=== PATIENT | female | born 1990 | race Caucasian/White ===

== ENCOUNTER 2016-11-06 20:38 | Emergency (ER) | payer OTHER, BC ==
[~2016-11-06] VITALS: Ht 180.3 cm; Wt 106.0 kg
[2016-11-06] MEDS ORDERED: ONDANSETRON 2 MG/ML (Z0FRAN) 2 ML VIAL IV ONE (21:40)
[2016-11-06] MEDS ORDERED: HYDROmorphone 1 MG/ML (DILAUDID) SYRINGE IV ONE ×2 (21:40→23:20)
[2016-11-06] MEDS ORDERED: SODIUM CHLORIDE FLUSH 3 ML SYR IV PRN (21:40)
[2016-11-06] MEDS: SODIUM CHLORIDE FLUSH 10 ML SYR IV PRN ×2 (21:54→23:38)
[2016-11-06 22:05] LABS: BASOPHILS % (AUTO) 0 % (0-2); EOSINOPHILS # (AUTO) 0.2 10^3uL; EOSINOPHILS % (AUTO) 2 % (0-4); LYMPHOCYTES # (AUTO) 2.3 X10^3; MEAN CORPUSCULAR HGB CONC 32.8 g/dL (31.0-37.0); MEAN CORPUSCULAR VOLUME 81 FL (80-100); MONOCYTES # (AUTO) 0.9 X10^3; MONOCYTES % (AUTO) 7 % (3-11); NEUTROPHILS # (AUTO) 8.7 X10^3; NEUTROPHILS % (AUTO) 72 % (51-67); PLATELET COUNT 410 10^3uL (150-450); WHITE BLOOD COUNT 12.11 10^3uL (4.0-11.0)
[2016-11-06 22:06] LABS: BILIRUBIN,URINE Negative (Negative); CLARITY,URINE Clear; COLOR,URINE Yellow; GLUCOSE, URINE (UA) Negative (Negative); LEUKOCYTE ESTERASE ,URINE Negative (Negative); PH,URINE 6.5 (5.0 - 8.0); UROBILINOGEN,URINE 0.2 mg/dL (0.2-1.0)
[2016-11-06 22:13] LABS: MEAN CORPUSCULAR HEMOGLOBIN 26.6 PG (26.0-34.0)
[2016-11-06 22:13] LABS: HCG,QUALITATIVE URINE Negative (Negative); URINE CENTRIFUGED VOLUME 11 mL
[2016-11-06 22:14] LABS: ALBUMIN 4.1 g/dL (3.4-5.0); ANION GAP 13.4 MEQ/L (3-15); CALCULATED IONIZED CALCIUM 4.1 mg/dL (3.8-4.6); TOTAL PROTEIN 7.2 g/dL (6.4-8.5)
[2016-11-06 22:16] LABS: RBC,URINE 0-2 /HPF
[2016-11-07] MEDS ORDERED: ED- oxyCODONE/ACETAMINOPHEN 5MG-325MG (PERCOCET) 8 TABLETS/BTL PO ONE
[2016-11-07] MEDS ORDERED: ED- ONDANSETRON ODT 4 MG (ZOFRAN) 4 TABLETS/BTL PO ONE
[2016-11-07 00:30] VITALS: BP 127/84
== END 2016-11-07 00:38 | disposition home or self-care (01) ==
LOC: ED 20:45
DX: R10.13 Epigastric pain (principal); R10.11 Right upper quadrant pain
CPT/HCPCS: 36415; 74022; 80053; 81003; 81015; 81025; 83690; 85025; 96361; 96374; 96375; 96376; 99284; J1170; J2405; J7030; 99283

== ENCOUNTER → 2016-11-07 | Outpatient (CLI) | payer OTHER, BC | LOC: RAD 10:22 | PROVIDERS: ATTEND Emergency Medicine | DX: R10.13 Epigastric pain (principal); K80.80 Other cholelithiasis without obstruction | CPT/HCPCS: 76705 ==

== ENCOUNTER 2016-11-17 06:55 | Day surgery (SDC) | payer OTHER, BC ==
[~2016-11-17] VITALS: Ht 180.3 cm; Wt 102.3 kg
[~2016-11-17 06:55] MED LIST: LACTATED RINGERS 1,000 ML IV SCH; SODIUM CHLORIDE FLUSH 3 ML SYR IV PRN
[2016-11-17] MEDS ORDERED: BUPIVACAINE/EPINEPHRINE 0.5%-1:200,000 (MARCAINE) 30 ML VIAL INJ ONE (07:01)
[2016-11-17 07:02] VITALS: BP 127/67
[2016-11-17] MEDS ORDERED: MIDAZOLAM 2 MG/2 ML (VERSED) VIAL ONE (07:32)
[2016-11-17] MEDS ORDERED: PROPOFOL 20 ML IV ONE (07:33)
[2016-11-17] MEDS ORDERED: ALFENTANIL 500 MCG/ML (ALFENTA) 5 ML AMP IV ONE (07:33)
[2016-11-17] MEDS ORDERED: ROCURONIUM 50 MG/5 ML (ZEMURON) VIAL IV ONE (08:00)
[2016-11-17] MEDS ORDERED: METOCLOPRAMIDE 10 MG/2 ML (REGLAN) VIAL ONE (08:01)
[2016-11-17] MEDS ORDERED: ONDANSETRON 2 MG/ML (Z0FRAN) 2 ML VIAL ONE (08:01)
[2016-11-17] MEDS ORDERED: diphenhydrAMINE 50 MG/ML INJ (BENADRYL) ONE (08:01)
[2016-11-17] MEDS ORDERED: GLYCOPYRROLATE 0.2 MG/ML (ROBINUL) 1 ML VIAL ONE (08:04)
[2016-11-17] MEDS ORDERED: NEOSTIGMINE 1 MG/ML SYRINGE ONE (08:04)
[2016-11-17] MEDS ORDERED: ePHEDrine SULFATE 50 MG/ML 1 ML AMP ONE (08:27)
[2016-11-17] MEDS ORDERED: KETOROLAC 60 MG/2 ML (TORADOL) VIAL IM ONE (08:51)
[2016-11-17] MEDS ORDERED: MEPERIDINE 25 MG/ML (DEMEROL) SYRINGE ONE (09:08)
[2016-11-17 09:32] VITALS: BP 140/78
[2016-11-17] MEDS ORDERED: ONDANSETRON 2 MG/ML (Z0FRAN) 2 ML VIAL IV PRN (09:40)
[2016-11-17] MEDS ORDERED: METOCLOPRAMIDE 10 MG/2 ML (REGLAN) VIAL IV PRN (09:40)
[2016-11-17] MEDS ORDERED: morphine INJ 4 MG/ML 1 ML SYRINGE IV PRN (09:40)
[2016-11-17] MEDS ORDERED: KETOROLAC 30 MG/ML (TORADOL) 1 ML VIAL IV PRN (09:40)
[2016-11-17 10:00] VITALS: BP 130/68
[2016-11-17 10:11] VITALS: BP 139/70
[2016-11-17 10:27] VITALS: BP 122/66
[2016-11-17 10:44] VITALS: BP 117/63
== END 2016-11-17 10:48 | disposition home or self-care (01) ==
LOC: ASC 06:55
PROVIDERS: ATTEND Surgery
DX: K80.10 Calculus of gallbladder with chronic cholecystitis without obstruction (principal)
CPT/HCPCS: 47563; 74300; J1200; J1885; J2175; J2250; J2710; J3490; J7120

== ENCOUNTER → 2017-01-05 | Outpatient (CLI) | payer OTHER, BC ==
[~2017-01-05] MED LIST changes: +BIRTH CONTROL PO; -LACTATED RINGERS 1,000 ML IV SCH; +MULT-35 PO; +NF-TORA10 PO; +NORG1TAB14 PO; +ONDAN4ODT PO; +SERT50TA2 PO; -SODIUM CHLORIDE FLUSH 3 ML SYR IV PRN; +TRAM-25 PO
== END ==
LOC: EMS 07:19
DX: Z53.20 Procedure and treatment not carried out because of patient's decision for unspecified reasons (principal)